=== PATIENT | male | born 1955 | race Caucasian/White ===

== ENCOUNTER 2024-10-15 11:30 | Emergency (ER) | payer MEDICARE, SELFPAY ==
--- NOTE | ~2024-10-15 | CT_ITS ---
CLINICAL HISTORY: perirectal abscess CT abdomen and pelvis with contrast Comparison: None provided Findings: Left lower lobe atelectasis versus scar. No acute right base abnormality. Degenerative change spine and hips. Small hiatal hernia noted. No acute bony abnormalities. Hepatomegaly with fatty infiltration of the liver. No significant focal abnormality in liver or spleen. Pancreas and adrenal glands unremarkable. Gallbladder is within normal limits. No significant focal renal abnormalities. No renal stones or hydronephrosis. Abdominal aorta is normal in caliber. No free fluid or adenopathy in the pelvis. No diverticulitis. Appendix unremarkable. 2.1 cm perianal fluid collection with adjacent stranding. Findings are consistent with abscess. This lies in the midline. Impression: 2.1 cm midline perianal abscess This document has been electronically signed by: Chuck Pineda MD on 10/15/2024 22:23:15
[2024-10-15 11:54] VITALS: BP 138/77; PULSE 117; RESP 16; TEMP 36.4; O2SAT 95; BMI 35.5
--- NOTE | 2024-10-15 11:55 | ED.GENADULT ---
HPI - General Adult General Chief complaint: Skin/Abscess/Foreign Body Stated complaint: Cyst On Private Area Time Seen by Provider: 10/15/24 18:14 Source: patient Limitations: no limitations History of Present Illness ED Provider: Dinah Atkins PA-C HPI narrative: 69-year-old male with a history of diabetes presents with rectal infection x1 week. Patient states he had an abscess in the same region, he has required incision and drainage. Patient states over the past week he has developed tender swelling along the right inner buttock crevice adjacent to the rectum. Denies fever. Denies rectal discharge or bleeding. Related Data Previous Rx's ?Medication ?Instructions ?Recorded doxycycline hyclate 100 mg capsule 100 mg PO BID #13 caps 10/16/24 Allergies Allergy/AdvReac Type Severity Reaction Status Date / Time No Known Allergies Allergy Verified 10/15/24 11:57 Review of Systems Review of Systems: Yes all other systems are reviewed and are negative Constitutional: Constitutional: Denies fatigue and Denies fever(s) Cardiovascular: Cardiovascular: Denies chest pain and Denies dyspnea Respiratory: Respiratory: Denies dyspnea Gastrointestinal: Gastrointestinal: Denies abdominal pain, Denies hematochezia, Denies diarrhea, Denies nausea and Denies vomiting Endocrine: Endocrine: Denies fatigue PMFSH Past Medical History Attestation statement: The following information was validated with the patient. Social History Social History Unable to assess alcohol history related to: Unknown Use of substances other than those prescribed or required for medical reasons: Unknown Advance Directives: No Advance Directives Information Provided: Yes Do you have a plan to hurt others: No Plan Physical Exam ED Vital Signs: Vital Signs - 24 hr 10/15/24 11:54 10/15/24 19:39 10/15/24 19:45 Temperature 97.6 F 97.9 F Pulse Rate 117 H 79 Respiratory Rate 16 20 20 Blood Pressure 138/77 100/65 Pulse Oximetry 95 96 Oxygen Delivery Method Room Air Room Air 10/15/24 19:55 10/15/24 22:00 Temperature 98.1 F Pulse Rate 80 77 Respiratory Rate 16 16 Blood Pressure 101/68 102/54 L Pulse Oximetry 97 94 Oxygen Delivery Method Room Air Room Air BMI result Body Mass Index 35.5 Const Other: Alert Orientation/consciousness: patient oriented x3 Resp Effort & Inspection: normal respiratory effort Cardio Other: Normal peripheral perfusion GI Other: Soft, nontender nondistended obese abdomen, no purulent or bloody discharge noted per rectum, there is a raised, erythematous, indurated tender swelling along the inner right buttock crease, it has started to drain purulent drainage Skin Other: Warm dry no rash Neuro General: patient oriented x3, gait normal, no focal motor deficits and CN's II-XI intact bilaterally Psych Other: Cooperative Course Course Course Narrative: RME, this is a rapid medical exam performed by Pawan Pitts please refer to primary provider for complete H&P- 69-year-old male presents for evaluation of a perirectal mass. He reports it feels different than his hemorrhoids and is concerned about an abscess. He reports he has had an abscess once 4 years ago. He has a borderline diabetic. Plan for direct visualization Medications Administered Discontinued Medications Generic Name Dose Route Start Last Admin Trade Name Freq PRN Reason Stop Dose Admin Doxycycline Monohydrate 100 mg 10/15/24 22:33 10/15/24 22:41 Doxycycline Monohydrate 100 Mg Capsule PO 10/15/24 22:34 100 mg ONCE ONE Administration Sodium Chloride 500 mls @ 500 mls/hr 10/15/24 19:21 10/15/24 20:38 Ns IV 10/15/24 20:20 Infused .Q1H ONE Infusion Iohexol 100 ml 10/15/24 21:10 10/15/24 21:10 Iohexol 350 Mg/Ml 100 Ml Infus..Btl IV 10/15/24 21:11 100 ml ONCE ONE Administration Lidocaine/Epinephrine 10 ml 10/15/24 22:33 10/15/24 23:07 Lidocaine Hcl 1%/Epi 1:100,000 10 Ml Vial INFILTRATI 10/15/24 22:34 10 ml ONCE ONE Administration Morphine Sulfate 4 mg 10/15/24 19:21 10/15/24 19:39 Morphine Sulfate 4 Mg/Ml Cartridge IVPUSH 10/15/24 19:22 4 mg ONCE ONE Administration Protocol Procedures Abscess I/D Site: mark-rectal Side (if applicable): right Sedation/analgesia: none Local Anesthetic: with epi Amount of anesthesia used (mL): 3 Technique: incised with blade Amount of fluid expressed (mL): 10 Sent for culture/gram staining?: No Irrigation: Yes Packing used?: iodoform Medical Decision Making Medical Decision Making MDM Narrative: 69-year-old male with a history of diabetes presents with rectal infection x1 week. Patient states he had an abscess in the same region, he has required incision and drainage. Patient states over the past week he has developed tender swelling along the right inner buttock crevice adjacent to the rectum. Denies fever. Denies rectal discharge or bleeding. Problem: Diabetes History: Per patient I have considered the following differential diagnoses: Perirectal abscess, fistula formation, cellulitis, purulent cellulitis, cyst Plan: Given location I am obtaining a CT scan to make sure it is not deep, I explained to the patient that there was a lot of vasculature and nerves within this area. We will I and D at bedside if it is superficial. Starting doxycycline, we will screen basic labs in the event the patient requires actual surgical intervention. Giving morphine for the pain I have independently reviewed the following tests: Labs: No leukocytosis, not anemic, no electrolyte abnormality noted CT abdomen and pelvis:Impression: 2.1 cm midline perianal abscess Lab Data 10/15/24 19:31 10/15/24 19:59 Labs: Lab Results 10/15/24 10/15/24 Range/Units 19:31 19:59 WBC 9.9 (4.8-10.8) X10*3/uL RBC 4.58 L (4.60-5.80) X10*6/uL Hgb 15.9 (14.0-18.0) g/dl Hct 44.6 (42.0-52.0) % MCV 97.4 (80.0-98.0) fL MCH 34.7 H (27.0-33.0) pg MCHC 35.7 (31.0-36.0) g/dl RDW 12.3 (11.0-16.0) % Plt Count 139 L (160-400) X10*3/uL MPV 12.1 (9.4-12.4) fL Immature Gran % (Auto) 0.4 (0.0-0.4) % Neut % (Auto) 65.5 (45-73) % Lymph % (Auto) 14.1 L (20-40) % [place] % (Auto) 18.7 H (2-11) % Eos % (Auto) 1.0 (0-4) % Baso % (Auto) 0.3 (0-2) % Lymph # (Auto) 1.4 (1.2-4.9) X10*3/uL [place] # (Auto) 1.8 H (0.1-1.2) X10*3/uL Eos # (Auto) 0.1 (0.0-0.4) X10*3/uL Baso # (Auto) 0.0 (0.0-0.2) X10*3/uL Abs Immat Gran (auto) 0.04 H (0.00-0.03) X10*3/uL Absolute Neuts (auto) 6.5 (2.0-8.3) x10*3/uL Absolute Nucleated RBC 0.000 (0.0-0.012) X10*3/uL Nucleated RBC % (auto) 0.0 (0.0-0.2) /100WBC Smear Tech's Comments VERIFIED Sodium 140 (135-145) mmol/L Potassium 3.3 (3.3-5.1) mmol/L Chloride 115 H (96-108) mmol/L Carbon Dioxide 21 L (22-29) mmol/L Anion Gap 7 L (12-20) BUN 12 (9-16) mg/dL Creatinine 0.73 (0.5-1.4) mg/dL Estim Creat Clear Calc 105.0 Estimated GFR > 60 Random Glucose 202 H (60-115) mg/dL Calcium 6.4 L (8.4-10.2) mg/dL Discharge Plan Discharge Clinical Impression: Abscess of skin or subcutaneous tissue Patient Disposition: Home, Self-Care Instructions: Abscess Incision and Drainage (DC) Additional Instructions: The CT scan revealed that the abscess with superficial, it was not deep to the rectum. It was lanced and drained, packing was placed within the wound. It can be removed in 2 days. See home care instructions. Take the doxycycline as directed. Follow up with primary care within a week. Prescriptions: New doxycycline hyclate 100 mg capsule 100 mg PO BID Qty: 13 0RF Print Language: Lithuanian
[2024-10-15 19:39] VITALS: RESP 20
[2024-10-15] MEDS: Morphine Sulfate 4 MG/ML CARTRIDGE IVPUSH (19:39)
[2024-10-15] MEDS: 0.9 % Sodium Chloride 500 ML IV (19:40)
[2024-10-15 19:44] LABS: Basophils Percent Auto 0.3 % (0-2); Eosinophils Absolute Auto 0.1 X10*3/uL (0.0-0.4); Hematocrit 44.6 % (42.0-52.0); Hemoglobin 15.9 g/dl (14.0-18.0); Imm Gran Abs Auto 0.04 X10*3/uL (0.00-0.03); Imm Gran Pct Auto 0.4 % (0.0-0.4); Lymphocytes Absolute Auto 1.4 X10*3/uL (1.2-4.9); Lymphocytes Percent Auto 14.1 % (20-40); MANUAL DIFF FLAG SCAN; Mean Corpuscular HGB Conc 35.7 g/dl (31.0-36.0); Mean Corpuscular Hemoglobin 34.7 pg (27.0-33.0); Mean Corpuscular Volume 97.4 fL (80.0-98.0); Mean Platelet Volume 12.1 fL (9.4-12.4); Monocytes Absolute Auto 1.8 X10*3/uL (0.1-1.2); Monocytes Percent Auto 18.7 % (2-11); Neutrophils Absolute Auto 6.5 x10*3/uL (2.0-8.3); Neutrophils Percent Auto 65.5 % (45-73); Platelet Count 139 X10*3/uL (160-400); Red Blood Count 4.58 X10*6/uL (4.60-5.80); Red Cell Distribution Width 12.3 % (11.0-16.0); SCAN SMEAR FLAG 1; White Blood Count 9.9 X10*3/uL (4.8-10.8)
[2024-10-15 19:45] VITALS: BP 100/65; PULSE 79; RESP 20; TEMP 36.6; O2SAT 96
[2024-10-15 19:55] VITALS: BP 101/68; PULSE 80; RESP 16; O2SAT 97
[2024-10-15 20:22] LABS: Anion Gap 7 (12-20); Blood Urea Nitrogen 12 mg/dL (9-16); Calcium 6.4 mg/dL (8.4-10.2); Carbon Dioxide 21 mmol/L (22-29); Chloride 115 mmol/L (96-108); Estimated Glomerular Filt Rate > 60; Glucose Random 202 mg/dL (60-115); Potassium 3.3 mmol/L (3.3-5.1); Sodium 140 mmol/L (135-145)
[2024-10-15 20:23] LABS: SLIDE REVIEW VERIFIED
--- NOTE | 2024-10-15 20:59 | PC.NURSE ---
Away for radiology.
[2024-10-15] MEDS: iohexoL 350 MG/ML 100 ML INFUS..BTL IV (21:10)
[2024-10-15 22:00] VITALS: BP 102/54; PULSE 77; RESP 16; TEMP 36.7; O2SAT 94
[2024-10-15] MEDS: Doxycycline Monohydrate 100 MG CAPSULE PO (22:41)
[2024-10-15] MEDS: Lidocaine HCl 1%/Epi 1:100,000 10 ML VIAL INFILTRATI (23:07)
[2024-10-16 00:10] VITALS: BP 113/72; PULSE 91; RESP 16; TEMP 36.7; O2SAT 94
[2024-10-16 00:20] VITALS: BP 113/72; PULSE 91; RESP 16; TEMP 36.7; O2SAT 94
== END 2024-10-16 00:24 | disposition home or self-care (01) ==
PROVIDERS: Physician Assistant Medical; Emergency Provider Emergency Medicine Emergency Medical Services; PCP Internal Medicine
DX: K61.0 Anal abscess (principal); E11.9 Type 2 diabetes mellitus without complications
CPT/HCPCS: 36415; 46050; 74177; 80048; 85025; 96361; 96374; 99284; J2004; J2270; Q9967

== ENCOUNTER → 2024-10-15 19:21 | Outpatient (BNV) | payer MEDICARE, SELFPAY | PROVIDERS: Emergency Provider Emergency Medicine Emergency Medical Services; PCP Internal Medicine; Visit Provider Radiology Diagnostic Radiology | DX: K61.0 Anal abscess (principal) | CPT/HCPCS: 74177 ==

== ENCOUNTER 2025-04-17 14:48 | Outpatient (AMB) | payer MEDICARE, SELFPAY ==
[2025-04-17 14:50] VITALS: BP 100/70; PULSE 104; TEMP 36.7; O2SAT 96; BMI 34.8
--- NOTE | 2025-04-17 14:50 | MHC.OFFWIV ---
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 - He reports the swelling began acutely and extended up to his elbow. - He denies any recent injury or trauma to the hand. - He has a history of similar episodes, which he attributes to arthritis, but states the current presentation is more severe than previously experienced. - The patient confirms a history of gout. - His diet in the past week included liver, a known high-purine food, consumed on two occasions in the past week. - Regarding his relevant medical history, he has arthritis and has previously taken ibuprofen 800 mg three times a day, but stopped due to kidney problems. - He also has a history of migraines and is borderline diabetic. Review of Systems - Musculoskeletal: Reports severe pain and swelling in one hand, extending to the elbow, with painful wrist motion. Denies trauma or injury. - Gastrointestinal: Reports intolerance to ibuprofen causing stomach upset. - Genitourinary: Reports a history of kidney problems secondary to ibuprofen use. - Neurological: Reports a history of migraines. All systems reviewed and are unremarkable except as noted in HPI Physical Exam General: Cooperative, healthy appearing, comfortable, no acute distress and well developed Orientation: Patient oriented x3 Limitations: Limited movement in the wrist due to pain Head: Normal to inspection Ears: Hearing grossly normal bilaterally Nose: Normal External nose present Face and sinus: Normal facial exam Eyes: Appearance normal, both eyes and all related structures Neck: Normal visual inspection and Yes full ROM Respiratory: Normal respiratory effort and able to speak in complete sentences. Skin: No rashes or lesions noted Neuro: Patient oriented x3 Extremities: right wrist and hand with swelling, limited movement due to pain [facility] Medical History (Updated 04/17/25 @ 15:12 by Aby Currie PA-C) Gout attack Physical Exam Vital Signs: Last Vital Signs Temp 98.0 F 04/17/25 14:50 Pulse 104 H 04/17/25 14:50 BP 100/70 04/17/25 14:50 Pulse Ox 96 04/17/25 14:50 Oxygen Delivery Method Room Air 04/17/25 14:50 BMI result Body Mass Index 34.8 Office Meds prednisone 20 mg tablet Performing Provider: Aby Currie PA-C Performing Location: [facility] Administered by: Aby Currie PA-C on 04/17/25 15:15 Dose Route Admin Location Dispensed Lot Number Expiration Date NDC [address] 20 mg PO 1 tab [id number] 07/28/25 [id number] Assessment & Plan Assessment & Plan (1) Gout attack: Code(s): M10.9 - Gout, unspecified Qualifiers: Gout site: wrist Encounter type: initial encounter Laterality: right Plan: Plan Patient was informed and verbally consented to the use of an ambient scribe for clinic note documentation during this visit. 1. Gout, Unspecified - The patient's presentation with acute, severe, and tender joint swelling is highly suspicious for a gout flare, especially given his recent consumption of liver twice in the past week, a high-purine food. - An exacerbation of his underlying arthritis is considered in the differential diagnosis. - A course of oral steroids was selected for treatment to address inflammation from either gout or arthritis. - A partial dose of prednisone was administered in the office for immediate relief, 20mg PO was given - A prescription for prednisone 50 mg was sent to [facility] to be taken daily for five days, starting the following morning. - NSAIDs such as ibuprofen are contraindicated due to the patient's history of stomach upset and kidney issues. - The patient was educated on potential side effects of prednisone, including increased energy, mood changes, increased appetite, and temporary hyperglycemia. - He was counseled to avoid high-purine foods that can trigger gout and to discuss preventative medications with his primary care provider. - He was advised to follow up with his primary care provider if his symptoms do not resolve after completing the medication course. Orders: Orders AMB Prednisone Adult Dose Today M10.9 - Gout, unspecified Medications: New prednisone 50 mg PO QAM 5 tabs 0RF Discontinued doxycycline hyclate Discontinued Reason: Patient Completed Course 100 mg PO BID 13 caps 0RF Coding Level of Care Code New Pt Level 3 (81847) Diagnoses Gout attack M10.9 Gout site: wrist Encounter type: initial encounter Laterality: right
== END 2025-04-17 15:25 | disposition home or self-care (01) ==
PROVIDERS: PCP Internal Medicine; Visit Provider Physician Assistant
DX: M10.9 Gout, unspecified (principal)

== ENCOUNTER → 2025-04-17 14:48 | Outpatient (BNVA) | payer MEDICARE, SELFPAY | PROVIDERS: PCP Internal Medicine; Visit Provider Physician Assistant | DX: R22.31 Localized swelling, mass and lump, right upper limb (principal); M10.9 Gout, unspecified | CPT/HCPCS: 99202 ==